=== PATIENT | female | born 2000 | race African-American/Black ===

== ENCOUNTER 2023-09-06 11:09 | Emergency (ER) | payer MEDICAID ==
[~2023-09-06] VITALS: Ht 162.6 cm; Wt 104.5 kg
[2023-09-06 11:15] VITALS: BP 115/77; PULSE 72; TEMP 98
[2023-09-06] MEDS ORDERED: PREDNISONE50 MG PO (11:29)
[2023-09-06] MEDS ORDERED: TRIAMCINOLONE A15 GM TP (11:29)
== END 2023-09-06 11:56 | disposition home or self-care (01) ==
LOC: COL.ER 11:09
DX: L50.9 Urticaria, unspecified (principal); Z87.891 Personal history of nicotine dependence